=== PATIENT | female | born 1985 | race Caucasian/White ===

== ENCOUNTER 2021-03-13 19:45 | Emergency (ER) | payer OTHER, SELFPAY ==
[2021-03-13 19:52] VITALS: BP 161/100; PULSE 96; RESP 16; TEMP 36.7; O2SAT 97; BMI 32.9
--- NOTE | 2021-03-13 20:39 | ED.HA ---
HPI - Headache General Chief Complaint: Headache Stated Complaint: Migraine Time Seen by Provider: 03/13/21 20:16 Source: patient Mode of arrival: Ambulatory Limitations: no limitations History of Present Illness HPI Narrative: Patient is a 36-year-old female here for evaluation of a migraine headache. Patient has had migraines in the past but she states it has been close to 15 years since she has last had a migraine. She states the headache that she has today feels very similar to her prior headaches. She is not on any medications for them. She thinks that the headache started today after spending a day out on a boat and thought that it was very rough. Describes it as left-sided dose in the front to the back. Has tried some Tylenol and ibuprofen prior to arrival without much improvement. No fevers. No trauma. Related Data Previous Rx's Medication Instructions Recorded acyclovir [Zovirax] 400 mg PO BID #60 tab 06/19/17 amoxicillin 875 mg tablet 875 mg PO BID #20 tab 04/04/18 Allergies Allergy/AdvReac Type Severity Reaction Status Date / Time No Known Drug Allergies Allergy Verified 04/04/18 12:20 Review of Systems Constitutional Constitutional: Denies fever(s) and Reports headache(s) Eyes Eyes: Reports photophobia ENT Ears, Nose, Mouth, and Throat: Reports headache(s) and Denies sore throat Cardiovascular Cardiovascular: Denies chest pain and Denies dyspnea Respiratory Respiratory: Denies dyspnea Gastrointestinal Gastrointestinal: Denies abdominal pain, Reports nausea and Denies vomiting Musculoskeletal Musculoskeletal: Reports system reviewed and no additional complaints, except as documented Integumentary/Breasts Skin/Breast: Reports system reviewed and no additional complaints, except as documented Neurologic Neurologic: Reports system reviewed and no additional complaints, except as documented and Reports headache(s) Psychiatric Psychiatric: Reports system reviewed and no additional complaints, except as documented Hematologic/Lymphatic On Anticoagulants: No Allergic/Immunologic Allergic/Immunologic: Reports system reviewed and no additional complaints, except as documented Patient History Medical History Migraines Family History (Updated 08/26/14 @ 00:00 by Eva Xavier MD) Mother Alcoholism Social History Smoking Status: Never smoker Smoking Status: Never smoker Exam Initial Vital Signs Initial Vital Signs: Vital Signs Temperature 98.1 F 03/13/21 19:52 Pulse Rate 96 H 03/13/21 19:52 Respiratory Rate 16 03/13/21 19:52 Blood Pressure 161/100 H 03/13/21 19:52 Pulse Oximetry 97 03/13/21 19:52 Const General: cooperative, comfortable and well developed Limitations: mental status not altered HENMT Head: normal to inspection and normocephalic Ears: hearing grossly normal bilaterally Nose: external nose normal Face and sinus: normal facial exam Eyes General: appearance normal, both eyes and all related structures Resp Effort & Inspection: normal respiratory effort Auscultation: clear to auscultation bilaterally Cardio Rate: regular rate Rhythm: regular rhythm GI Inspection: non-distended Skin Lesions: no lesions Rashes: no rashes Neuro General: patient alert, patient awake and patient oriented x3 Cognition: normal cognition Speech: speech normal Gait: normal gait Extrem General: normal to inspection and capillary refill normal Psych Appearance: grossly normal and well kempt Scores GCS Adrien coma scale eye opening: Spontaneous [place] coma scale verbal response: Orientated Adrien coma scale motor response: Obey commands Adrien coma scale total score: 15 Course Orders Ordered: Discontinued Medications Diphenhydramine HCl (Diphenhydramine 50 Mg/Ml Vial) 25 mg IV NOW ONE Stop: 03/13/21 20:40 Last Admin: 03/13/21 20:54 Dose: 25 mg Documented by: JON Sodium Chloride (Normal Saline 0.9%) 1,000 mls @ 1,000 mls/hr IV BOLUS ONE Stop: 03/13/21 21:38 Last Infusion: 03/13/21 22:04 Dose: 0 mls/hr Documented by: Admin: 03/13/21 20:52 Dose: 1,000 mls/hr Documented by: JON Ketorolac Tromethamine (Ketorolac 30 Mg/Ml Vial) 30 mg IV NOW ONE Stop: 03/13/21 20:40 Last Admin: 03/13/21 20:53 Dose: 30 mg Documented by: JON Metoclopramide HCl (Metoclopramide 10 Mg/2 Ml Inj) 10 mg IV NOW ONE Stop: 03/13/21 20:40 Last Admin: 03/13/21 20:53 Dose: 10 mg Documented by: JON Sumatriptan Succinate (Sumatriptan 6 Mg/0.5 Ml Vial) 6 mg SUBCUT NOW ONE Stop: 03/13/21 21:48 Last Admin: 03/13/21 22:10 Dose: 6 mg Documented by: JON Vital Signs Vital signs: Vital Signs - 8 hr 03/13/21 19:52 Temperature 98.1 F Pulse Rate 96 H Respiratory Rate 16 Blood Pressure 161/100 H Pulse Oximetry 97 MDM - Headache MDM Narrative Medical decision making narrative: Patient has a normal neurologic exam. The gradual onset of a left-sided headache which she states feels like prior headaches. She reports some improvement after Reglan and Benadryl. She was then given Imitrex which if it helped at all was only a slight amount. After time here in the emergency department she does feel much better and states she feels like she can maintain her current symptoms at home. I have low suspicion for meningitis. Low suspicion for subarachnoid hemorrhage. I feel that we can hold on radiologic studies for now. She was given return precautions and follow-up instructions. She expressed understanding and agreement. Discharge Plan Departure Patient Disposition: Home Clinical Impression: Migraine Instructions: DI for Migraine Activity Restrictions/Additional Instructions: Recommend you contact your primary provider for follow-up. You can continue to take Tylenol/ibuprofen for any headaches. Return to the emergency department for any new or worsening symptoms Prescriptions: No Action amoxicillin 875 mg tablet 875 mg PO BID Qty: 20 RF: 0 acyclovir [Zovirax] 400 MG tablet 400 mg PO BID Qty: 60 RF: 0
[2021-03-13] MEDS: SODIUM CHLORIDE 0.9% 1,000 ML 1000 ML IV (20:52)
[2021-03-13] MEDS: METOCLOPRAMIDE 10 MG/2 ML INJ IV (20:53)
[2021-03-13] MEDS: KETOROLAC 30 MG/ML VIAL IV (20:53)
[2021-03-13] MEDS: diphenhydrAMINE 50 MG/ML VIAL 25 MG IV (20:54)
[2021-03-13] MEDS: SUMAtriptan 6 MG/0.5 ML VIAL SUBCUT (22:10)
[2021-03-13 23:08] VITALS: BP 144/85; PULSE 80; RESP 18; O2SAT 99
== END 2021-03-13 23:09 | disposition home or self-care (01) ==
PROVIDERS: Emergency Provider Emergency Medicine
DX: G43.909 Migraine, unspecified, not intractable, without status migrainosus (principal)
CPT/HCPCS: 36415; 96361; 96372; 96374; 96375; 99284; J1200; J1885; J2765; J3030

== ENCOUNTER → 2021-03-31 07:14 | Outpatient (CLI) | payer OTHER, SELFPAY ==
[2021-03-31 08:09] LABS: Hematocrit 40.2 % (36-46); Hemoglobin 13.7 g/dL (12.0-16.0); Mean Corpuscular HGB Conc 34.1 % (30-36); Mean Corpuscular Hemoglobin 29.7 PG (26-34); Platelet Count 193 X10^3/uL (150-400); Red Blood Cell Count 4.62 X10^6/uL (4.0-5.2); Red Cell Distribution Width 13.8 % (11.6-14.8); White Blood Cell Count 8.3 X10^3/uL (4.5-11.0)
[2021-03-31 08:17] LABS: Alanine Aminotransferase 25 IU/L (<35); Albumin 4.3 g/dL (3.5-5.0); Albumin Globulin Ratio 1.3 (1.0-2.8); Alkaline Phosphatase 66 U/L (38-126); Aspartate Aminotransferase 24 IU/L (14-36); BUN Creatinine Ratio 21.3 (6-22); Bilirubin Total 0.7 mg/dL (0.2-1.3); Blood Urea Nitrogen 16 mg/dL (7-17); Calcium 9.1 mg/dL (8.4-10.2); Carbon Dioxide 25 mmol/L (22-32); Chloride 104 mmol/L (98-107); Cholesterol 211 mg/dL (140-199); Estimated Glomerular Filt Rate > 60.0 mL/min (>60); Globulin 3.2 g/dL (1.7-4.1); Glucose 106 mg/dL (70-100); HDL Cholesterol 53 mg/dL (40-60); HEMOLYSIS < 15 (0-50); LDL Cholesterol Calculated 137 mg/dL (<100); Potassium 4.2 mmol/L (3.4-5.1); Sodium 137 mmol/L (137-145); Total Protein 7.5 g/dL (6.3-8.2); Triglycerides 105 mg/dL (35-150)
== END ==
PROVIDERS: PCP Nurse Practitioner Family; Referring Provider Nurse Practitioner Family; Visit Provider Nurse Practitioner Family
DX: Z13.6 Encounter for screening for cardiovascular disorders (principal); Z00.00 Encounter for general adult medical examination without abnormal findings
CPT/HCPCS: 36415; 80053; 80061; 85027